=== PATIENT | female | born 1950 | race Caucasian/White ===

== ENCOUNTER 2017-01-18 14:18 | Inpatient (IN) | payer MEDICAID, OTHER ==
[~2017-01-18] VITALS: Ht 167.6 cm; Wt 123.6 kg
[~2017-01-18 14:18] MED LIST: ACYC-57 PO; ASPI-621 PO; CALA118S2 TP; CEFD300C37 PO; GABA-826 PO; IBUP-1222 PO; METF100010 PO; METF500T3 PO; NITR100C PO; OMEP20CA9 PO; SULF1TAB24 PO
[2017-01-18] MEDS ORDERED: ASPIRIN 81 MG TABLET CHEW PO ONE (15:30)
[2017-01-18] MEDS ORDERED: ONDANSETRON 2MG/ML, 2ML IVPush ONE (15:30)
[2017-01-18] MEDS ORDERED: SODIUM CHLORIDE FLUSH 10ML SYR IVF ONE (15:30)
[2017-01-18] MEDS ORDERED: MECLIZINE CHEWABLE 25 MG TAB PO ONE (15:30)
[2017-01-18] MEDS ORDERED: MECLIZINE CHEWABLE 25 MG TAB ONE (15:36)
[2017-01-18] MEDS ORDERED: ONDANSETRON 2MG/ML, 2ML ONE (15:36)
[2017-01-18] MEDS ORDERED: ASPIRIN 81 MG TABLET CHEW ONE (15:36)
[2017-01-18 15:38] LABS: HEMATOCRIT 38.8 % (34.6-47.8); HEMOGLOBIN 12.9 g/dL (11.7-16.4); WHITE BLOOD COUNT 6.1 x10^3/uL (3.4-10)
[2017-01-18 15:58] LABS: BLOOD UREA NITROGEN 20 mg/dL (7-18)
[2017-01-18 16:03] LABS: ASPARTATE AMINO TRANSFERASE 13 U/L (15-37)
[2017-01-18] MEDS ORDERED: GABA600T2 PO (18:34)
[2017-01-18] MEDS ORDERED: OMEP40CA6 PO (18:34)
[2017-01-18] MEDS ORDERED: INSU100V13 SQ (18:34)
[2017-01-18] MEDS ORDERED: SODIUM CHLORIDE FLUSH 10ML SYR IVF PRN (19:00)
[2017-01-18] MEDS ORDERED: ONDANSETRON 2MG/ML, 2ML IVPush PRN (19:30)
[2017-01-18] MEDS ORDERED: NITROGLYCERIN 0.4 MG/SPRAY SL PRN (19:30)
[2017-01-18] MEDS ORDERED: DEXTROSE 4 GM TAB.CHEW PO PRN (19:30)
[2017-01-18] MEDS ORDERED: LABETALOL 5MG/ML, 20ML IVPush PRN (19:30)
[2017-01-18] MEDS ORDERED: GLUCAGON 1 MG IM PRN (19:30)
[2017-01-18] MEDS ORDERED: NITROGLYCERIN 0.4 MG BOTTLE (25 TABS) SL PRN (19:30)
[2017-01-18] MEDS ORDERED: DEXTROSE 50%, 50ML SYRINGE IVPush PRN (19:30)
[2017-01-18] MEDS ORDERED: morphine SULFATE 10 MG/ML, 1ML IVPush PRN (19:30)
[2017-01-18] MEDS ORDERED: PROMETHAZINE 25 MG/ML, 1ML IM PRN (19:30)
[2017-01-18 20:15] LABS: IS PT STATUS REG ER OR PRE ER? YES
[2017-01-18 20:28] LABS: PATH.CAST-FLAG NOT PRESENT; SPERM-FLAG NOT PRESENT; SRC-FLAG NOT PRESENT; XTAL-FLAG NOT PRESENT; YLC-FLAG NOT PRESENT
[2017-01-18 20:48] VITALS: BP 103/69
[2017-01-18] MEDS: INSULIN ASPART 100 UNITS/ML, PEN SQ-INSULIN SCH (21:00)
[2017-01-18 21:53] VITALS: BP 103/69
[2017-01-18] MEDS: GABAPENTIN 300 MG CAPSULE PO SCH (22:21)
[2017-01-18] MEDS: INSULIN DETEMIR 100 UNITS/ML, PEN SQ-INSULIN SCH (22:21)
[2017-01-18] MEDS: SODIUM CHLORIDE FLUSH 10ML SYR IVF SCH (22:21)
[2017-01-18] MEDS: HEPARIN 5,000 UNITS/ML, 1ML SQ SCH (22:21)
[2017-01-18] MEDS: ACETAMINOPHEN 325 MG TABLET PO PRN (22:22)
[2017-01-19 02:24] LABS: IS PT STATUS REG ER OR PRE ER? NO
[2017-01-19 03:04] VITALS: BP 106/70
[2017-01-19 05:15] LABS: HEMATOCRIT 36.6 % (34.6-47.8); HEMOGLOBIN 12.2 g/dL (11.7-16.4)
[2017-01-19 05:42] LABS: ASPARTATE AMINO TRANSFERASE 9 U/L (15-37); BLOOD UREA NITROGEN 22 mg/dL (7-18)
[2017-01-19] MEDS: HEPARIN 5,000 UNITS/ML, 1ML SQ SCH ×3 (06:32→21:48)
[2017-01-19] MEDS: INSULIN DETEMIR 100 UNITS/ML, PEN SQ-INSULIN SCH ×2 (08:14→21:49)
[2017-01-19] MEDS: INSULIN ASPART 100 UNITS/ML, PEN SQ-INSULIN SCH ×4 (08:14→21:48)
[2017-01-19 08:27] VITALS: BP 121/79
[2017-01-19] MEDS ORDERED: REGADENOSON 0.4 MG/5 ML SYRINGE ONE (08:53)
[2017-01-19] MEDS ORDERED: CIPROFLOXACIN 500 MG TABLET PO SCH (09:00)
[2017-01-19] MEDS: SODIUM CHLORIDE FLUSH 10ML SYR IVF SCH ×2 (09:08→21:49)
[2017-01-19] MEDS: GABAPENTIN 300 MG CAPSULE PO SCH ×3 (09:08→21:48)
[2017-01-19] MEDS: OMEPRAZOLE 20 MG CAPSULE.DR PO SCH (09:08)
[2017-01-19] MEDS: CEFTRIAXONE PMX 1GM/50ML 50 ML IV SCH (09:11)
[2017-01-19 11:09] VITALS: BP 127/85
[2017-01-19 13:44] VITALS: BP 115/80
[2017-01-19 15:00] VITALS: BP_SYST 113
[2017-01-19 21:45] VITALS: BP 141/94
[2017-01-20 04:18] VITALS: BP 104/73
[2017-01-20] MEDS: HEPARIN 5,000 UNITS/ML, 1ML SQ SCH ×2 (06:07→16:07)
[2017-01-20] MEDS: INSULIN ASPART 100 UNITS/ML, PEN SQ-INSULIN SCH ×4 (07:00→22:24)
[2017-01-20 08:00] VITALS: BP 120/83
[2017-01-20] MEDS: INSULIN DETEMIR 100 UNITS/ML, PEN SQ-INSULIN SCH ×2 (08:45→22:24)
[2017-01-20] MEDS: OMEPRAZOLE 20 MG CAPSULE.DR PO SCH (08:48)
[2017-01-20] MEDS: GABAPENTIN 300 MG CAPSULE PO SCH ×3 (08:48→22:23)
[2017-01-20] MEDS: SODIUM CHLORIDE FLUSH 10ML SYR IVF SCH ×2 (08:48→21:00)
[2017-01-20] MEDS: ACETAMINOPHEN 325 MG TABLET PO PRN (08:49)
[2017-01-20] MEDS: CEFTRIAXONE PMX 1GM/50ML 50 ML IV SCH (11:32)
[2017-01-20 15:20] VITALS: BP 123/83
[2017-01-20 19:19] VITALS: BP 119/65
[2017-01-20] MEDS ORDERED: LABETALOL 5MG/ML, 20ML IVPush PRN (19:30)
[2017-01-20] MEDS ORDERED: DEXTROSE 50%, 50ML SYRINGE IVPush PRN (19:30)
[2017-01-20] MEDS ORDERED: PROMETHAZINE 25 MG/ML, 1ML IM PRN (19:30)
[2017-01-20] MEDS ORDERED: DEXTROSE 4 GM TAB.CHEW PO PRN (19:30)
[2017-01-21 02:10] VITALS: BP 126/78
[2017-01-21 05:27] LABS: HEMATOCRIT 38.9 % (34.6-47.8); HEMOGLOBIN 12.9 g/dL (11.7-16.4); WHITE BLOOD COUNT 6.3 x10^3/uL (3.4-10)
[2017-01-21 05:37] LABS: BLOOD UREA NITROGEN 20 mg/dL (7-18)
[2017-01-21 08:19] VITALS: BP 122/82
[2017-01-21] MEDS: INSULIN ASPART 100 UNITS/ML, PEN SQ-INSULIN SCH ×2 (08:45→11:54)
[2017-01-21] MEDS: OMEPRAZOLE 20 MG CAPSULE.DR PO SCH (08:46)
[2017-01-21] MEDS: INSULIN DETEMIR 100 UNITS/ML, PEN SQ-INSULIN SCH (08:46)
[2017-01-21] MEDS: ACETAMINOPHEN 325 MG TABLET PO PRN (08:47)
[2017-01-21] MEDS: GABAPENTIN 300 MG CAPSULE PO SCH (08:47)
[2017-01-21] MEDS: SODIUM CHLORIDE FLUSH 10ML SYR IVF SCH (08:47)
[2017-01-21] MEDS: HEPARIN 5,000 UNITS/ML, 1ML SQ SCH ×2 (08:48)
[2017-01-21] MEDS: CEFTRIAXONE PMX 1GM/50ML 50 ML IV SCH (08:53)
[2017-01-21] MEDS ORDERED: FOSFOMYCIN 3 GM PACKET PO ONE (14:00)
[2017-01-21] MEDS ORDERED: MECL-85 PO (14:05)
[2017-01-21 14:26] VITALS: BP 122/79
== END 2017-01-21 16:30 | disposition home or self-care (01) | DRG 392 ==
LOC: ED 16:19 → EDIP 18:44 → 5SO 20:27 → 4WST 01-20 02:55
PROVIDERS: ADMIT Internal Medicine; ATTEND Internal Medicine
DX: K21.9 Gastro-esophageal reflux disease without esophagitis (principal); N17.9 Acute kidney failure, unspecified; I11.9 Hypertensive heart disease without heart failure; E11.40 Type 2 diabetes mellitus with diabetic neuropathy, unspecified; E11.65 Type 2 diabetes mellitus with hyperglycemia; N39.0 Urinary tract infection, site not specified; B96.1 Klebsiella pneumoniae [K. pneumoniae] as the cause of diseases classified elsewhere; J00 Acute nasopharyngitis [common cold]; J45.909 Unspecified asthma, uncomplicated; Z16.12 Extended spectrum beta lactamase (ESBL) resistance; Z79.4 Long term (current) use of insulin
CPT/HCPCS: 36415; 70450; 70551; 71010; 78452; 80048; 80053; 80061; 81001; 82010; 82800; 82962; 83036; 83735; 83880; 84100; 84443; 84484; 85025; 87077; 87086; 87186; 93005; 93017; 93306; 96374; J0696; J1644; J1815; J2405; J2785; A9502; C9898

== ENCOUNTER 2017-03-04 16:20 | Emergency (ER) | payer MEDICAID ==
[~2017-03-04] VITALS: Ht 152.4 cm; Wt 114.6 kg
[~2017-03-04 16:20] MED LIST changes: +GABA600T2 PO; +INSU100V13 SQ; +MECL-85 PO; +OMEP40CA6 PO
[2017-03-04] MEDS ORDERED: SODIUM CHLORIDE FLUSH 10ML SYR IVF ONE ×2 (17:00→19:00)
[2017-03-04 17:14] LABS: HEMATOCRIT 40.3 % (34.6-47.8); HEMOGLOBIN 13.4 g/dL (11.7-16.4); WHITE BLOOD COUNT 8.2 x10^3/uL (3.4-10)
[2017-03-04 17:26] LABS: ASPARTATE AMINO TRANSFERASE 11 U/L (15-37); BLOOD UREA NITROGEN 16 mg/dL (7-18)
[2017-03-04 17:26] LABS: RAPID INFLUENZA A Negative (Negative); RAPID INFLUENZA B Negative (Negative)
[2017-03-04] MEDS ORDERED: SODIUM CHLORIDE 0.9% 1,000ML IVBOLUS ONE (19:00)
[2017-03-04 19:53] LABS: PATH.CAST-FLAG NOT PRESENT; SPERM-FLAG NOT PRESENT; SRC-FLAG NOT PRESENT; XTAL-FLAG NOT PRESENT; YLC-FLAG NOT PRESENT
[2017-03-04] MEDS ORDERED: HYDROmorphone 2 MG/ML, 1ML ONE (21:57)
[2017-03-04] MEDS ORDERED: ONDANSETRON ODT 4 MG ONE (21:57)
[2017-03-04] MEDS ORDERED: HYDROmorphone 1 MG/ML, 1ML IM ONE (22:00)
[2017-03-04] MEDS ORDERED: ONDANSETRON ODT 4 MG PO ONE (22:00)
[2017-03-04 22:10] VITALS: BP 135/52
== END 2017-03-04 22:43 | disposition home or self-care (01) ==
LOC: ED 20:53
DX: J02.8 Acute pharyngitis due to other specified organisms (principal); J01.10 Acute frontal sinusitis, unspecified; I10 Essential (primary) hypertension; E11.65 Type 2 diabetes mellitus with hyperglycemia; Z90.49 Acquired absence of other specified parts of digestive tract
CPT/HCPCS: 36415; 71010; 80053; 81001; 85025; 87086; 87400; 93005; 96372; 99285; J1170; Q0162